=== PATIENT | male | born 1960 | race Two or more races ===

== ENCOUNTER 2017-05-27 16:55 | Emergency (ER) | payer MEDICAID ==
[~2017-05-27] VITALS: Ht 175.3 cm; Wt 87.1 kg
[2017-05-27 17:13] VITALS: BP 148/87
--- NOTE | 2017-05-27 17:35 | Emergency Room Report ---
History of Present Illness General Chief Complaint: Skin Rash/Abscess Source: Patient Present Illness HPI 56 YO male presents to the ED c/o painful blistering rash to the right anterior chest x 2 days. pain is ranges from 6-8 /10 in severity and is described as burning and very painful to the touch. pain is exacerbated with anything touching the rash. pt. states he had pain prior to rash appearance. pt. states his mom had shingles last month, and he had chickenpox as a child. pt. denies fevers or chills. Denies lesions/rashes elsewhere on the body. Denies new medications or body washes or creams. Denies swelling of the lips, tongue , throat or airway. Denies wheezing, or shortness of breath. Denies recent travel , recent illness or ill contacts. denies blisters, oral lesions, or sloughing of the skin. Denies CP, Palpitations, LOC, AMS, dizziness, Changes in Vision, Sensation, paresthesias, or a sudden severe headache. Allergies: Coded Allergies: No Known Allergies (Unverified , 05/27/17) Patient History Past Medical History: see triage record Past Surgical History: none Pertinent Family History: none Immunizations: UTD Reviewed Nursing Documentation: PMH: Agreed, PSxH: Agreed Nursing Documentation-PMH Hx Diabetes: Yes Review of Systems All Other Systems: negative except mentioned in HPI Physical Exam Vital Signs Date Time Temp Pulse Resp B/P Pulse Ox O2 Delivery O2 Flow Rate FiO2 05/27/17 16:58 98.1 67 17 148/87 98 Room Air Sp02 EP Interpretation: reviewed, normal General Appearance: alert, GCS 15, non-toxic, mild distress Head: normocephalic, atraumatic Eyes: bilateral eye normal inspection, bilateral eye PERRL ENT: hearing grossly normal, normal voice, other - no facial involvement of the rash. Neck: full range of motion Respiratory: lungs clear, normal breath sounds, speaking full sentences, other - TTP over the right anteiror lower ribcage where rash is localized. Cardiovascular #1: regular rate, rhythm Musculoskeletal: back normal, gait/station normal, normal range of motion, non- tender, no calf tenderness Neurologic: alert, oriented x3, responsive, motor strength/tone normal, sensory intact, speech normal Psychiatric: judgement/insight normal, memory normal, mood/affect normal Skin: normal color, warm/dry, well hydrated, rash - vessicular rash localized to the right lower anteiror rib cage in a somewhat linear pattern, does not cross the midline, no crusting noted at this time, some localized erythema. Medical Decision Making PA Attestation Dr. Cleveland is my supervising Physician whom patient management has been discussed with. Diagnostic Impression: Primary Impression: Shingles Qualified Codes: B02.9 - Zoster without complications ER Course 56 YO male presents to the ED c/o painful blistering rash to the right anterior chest x 2 days. pain is ranges from 6-8 /10 in severity and is described as burning and very painful to the touch. pain is exacerbated with anything touching the rash. pt. states he had pain prior to rash appearance. pt. states his mom had shingles last month, and he had chickenpox as a child. pt. denies fevers or chills. Denies lesions/rashes elsewhere on the body. Denies new medications or body washes or creams. Denies swelling of the lips, tongue , throat or airway. Denies wheezing, or shortness of breath. Denies recent travel , recent illness or ill contacts. denies blisters, oral lesions, or sloughing of the skin. Denies CP, Palpitations, LOC, AMS, dizziness, Changes in Vision, Sensation, paresthesias, or a sudden severe headache. Ddx considered but are not limited to cellulitis, scabies, shingles, varicella, dermatitis, urticaria, eczema, tinea Vital signs: are WNL, pt. is afebrile H&PE are most consistent with Shingles without a secondary infection. ORDERS: none required at this time, the diagnosis is clinical ED INTERVENTIONS: None required at this time. DISCHARGE: At this time pt. is stable for d/c to home. Will provide printed patient care instructions, and any necessary prescriptions. Care plan and follow up instructions have been discussed with the patient prior to discharge. Last Vital Signs Date Time Temp Pulse Resp B/P Pulse Ox O2 Delivery O2 Flow Rate FiO2 05/27/17 17:13 98.1 77 17 148/87 98 Room Air Disposition: HOME, SELF-CARE Condition: Stable Scripts Hydrocodone Bit/Acetaminophen 5-325* (NORCO 5-325*) 1 Each Tablet 1 TAB ORAL Q6H Y for For Pain, #10 TAB 0 Refills Prov: Anastacia Hubbard 05/27/17 Lidocaine (LC-5) 45 Gm Cream..g. 1 GM TP TID, #45 GM Prov: Anastacia Hubbard 05/27/17 Valacyclovir Hcl* (VALTREX*) 500 Mg Tablet 1000 MG ORAL Q8HR for 7 Days, #42 TAB Prov: Anastacia Hubbard 05/27/17 Referrals: [facility] (PCP) Patient Instructions: Shingles Additional Instructions: Take medications as directed. Follow up with a Primary Care Provider in 3-5 days, even if your symptoms have resolved. --Please review list of primary care clinics, if you do not already have a primary care provider Return sooner to ED if new symptoms occur, or current symptoms become worse. Do not drink alcohol, drive, or operate heavy machinery while taking Roma as this may cause drowsiness. - Please note that this Emergency Department Report was dictated using [employer] librarian technology software, occasionally this can lead to erroneous entry secondary to interpretation by the dictation equipment. Anastacia Hubbard May 27, 2017 17:35
[2017-05-27] MEDS ORDERED: LC-545 GM TP (17:41)
[2017-05-27] MEDS ORDERED: VALACYCLOVIR500 MG ORAL (17:41)
[2017-05-27] MEDS ORDERED: NORCO 5-325 TA1 EACH ORAL (17:41)
[2017-05-27 17:52] VITALS: BP 148/87
== END 2017-05-27 17:54 | disposition home or self-care (01) ==
LOC: EMR 17:30
DX: B02.9 Zoster without complications (principal); E11.9 Type 2 diabetes mellitus without complications
CPT/HCPCS: 99284

== ENCOUNTER 2017-06-10 16:16 | Emergency (ER) | payer MEDICAID ==
[~2017-06-10] VITALS: Ht 175.3 cm; Wt 82.6 kg
[~2017-06-10 16:16] MED LIST: LC-545 GM TP; NORCO 5-325 TA1 EACH ORAL; VALACYCLOVIR500 MG ORAL
[2017-06-10 16:29] VITALS: BP 136/77
[2017-06-10] MEDS ORDERED: HYDROCHLOROTHIA25 MG ORAL (16:39)
[2017-06-10] MEDS ORDERED: LISINOPRIL10 MG ORAL (16:39)
[2017-06-10] MEDS ORDERED: METFORMIN HCL1000 M1 ORAL (16:39)
[2017-06-10] MEDS ORDERED: ATORVASTATIN CA20 MG ORAL (16:39)
[2017-06-10] MEDS ORDERED: Bacitracin Oint UD TOPIC ONE (17:00)
[2017-06-10] MEDS ORDERED: IBUPROFEN600 MG ORAL (17:17)
[2017-06-10 17:32] VITALS: BP 136/77
--- NOTE | 2017-06-10 22:19 | Emergency Room Report ---
History of Present Illness General Chief Complaint: Pain Source: Medical Record Present Illness HPI The patient is a 56-year-old male presenting for pain after a chair fell on his left toe yesterday. The patient states that he was intoxicated at the time. He also states that he fell and scraped his face after the injury but denies loss of consciousness. He states he remembers this whole endeavor. Pain is now a 5/10 dull ache to the left big toe and does not radiate. Worse with touch. He has noticed bruising and swelling to the area. He denies any other symptoms including nausea, vomiting, headache, dizziness, blurred vision Allergies: Coded Allergies: No Known Allergies (Unverified , 05/27/17) Patient History Past Medical History: see triage record Pertinent Family History: none Reviewed Nursing Documentation: PMH: Agreed, PSxH: Agreed Nursing Documentation-PMH Hx Hypertension: Yes Hx Diabetes: Yes Review of Systems All Other Systems: negative except mentioned in HPI Physical Exam Vital Signs Date Time Temp Pulse Resp B/P (MAP) Pulse Ox O2 Delivery O2 Flow Rate FiO2 06/10/17 16:19 97.9 90 18 136/77 98 Room Air Sp02 EP Interpretation: reviewed, normal General Appearance: no apparent distress, alert, GCS 15, non-toxic Head: normocephalic, atraumatic Eyes: bilateral eye normal inspection, bilateral eye PERRL ENT: hearing grossly normal, normal pharynx, no angioedema, normal voice Musculoskeletal: normal range of motion, swelling - L 1st toe, tender - TTP over the L 1st toe Neurologic: alert, oriented x3, responsive, motor strength/tone normal, sensory intact, speech normal Psychiatric: judgement/insight normal, memory normal, mood/affect normal, no suicidal/homicidal ideation Skin: abrasions - minor abrasions to L face, hematoma - L 1st toe Lymphatic: no adenopathy Procedures Splinting Splinting : Consent: Verbal Location: L foot Pre-Made Type: velcro Splint: cast shoe Pre-Proc Neuro Vasc Exam: normal Post-Proc Neuro Vasc Exam: normal Patient Tolerated: Well Complications: None Medical Decision Making PA Attestation Dr. Patel is my supervising physician. Patient management was discussed with my supervising physician Diagnostic Impression: Primary Impression: Facial abrasion Qualified Codes: S00.81XA - Abrasion of other part of head, initial encounter Additional Impression: Contusion of toe of left foot Qualified Codes: S90.212A - Contusion of left great toe with damage to nail, initial encounter ER Course The patient is a 56-year-old male presenting for pain after a chair fell on his left toe yesterday. Ddx considered include but not limited to sprain/strain, fracture, contusion PE: NAD. Superficial abrasion to L face. L 1st toe has hematoma with ecchymosis from IPJ to distal toe. Full AROM X-ray of the foot is unremarkable The patient is given a cast shoe and will be discharged home with pain medication. ER precautions are given Last Vital Signs Date Time Temp Pulse Resp B/P (MAP) Pulse Ox O2 Delivery O2 Flow Rate FiO2 06/10/17 17:32 97.9 18 136/77 98 Room Air 06/10/17 16:19 90 Status: improved Disposition: HOME, SELF-CARE Condition: Improved Scripts Ibuprofen* (MOTRIN*) 600 Mg Tablet 600 MG ORAL Q8H Y for For Pain, #30 TAB 0 Refills Prov: APRIL MENDOZA 06/10/17 Referrals: [facility] (PCP) Patient Instructions: Abrasion, Contusion Additional Instructions: I discussed my findings with the patient. All questions and concerns have been answered. Treatment and medication compliance have been addressed. I advised the patient that they need to follow up with PMD in 3-5 days. Return to ED if symptoms worsen, new symptoms arise, or if needed for any reason. Patient verbalized understanding of discharge instructions. APRIL MENDOZA Jun 10, 2017 22:19
--- NOTE | 2017-06-11 09:39 | Diagnostic Imaging Report ---
Indication: PAIN Technique: 3 views left foot Comparison: none Findings: No acute fractures. No dislocations. There are plantar and calcaneal spurs. 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 There is mild degenerative change of the first metacarpal phalangeal joint Impression: No acute bony trauma
== END 2017-06-10 17:32 | disposition home or self-care (01) ==
LOC: EMR 16:48
DX: S00.81XA Abrasion of other part of head, initial encounter (principal); S90.112A Contusion of left great toe without damage to nail, initial encounter; W19.XXXA Unspecified fall, initial encounter; Y92.9 Unspecified place or not applicable; I10 Essential (primary) hypertension; E11.9 Type 2 diabetes mellitus without complications
CPT/HCPCS: 99284